=== PATIENT | female | born 1975 | race Caucasian/White ===

== ENCOUNTER 2021-07-08 18:28 | Emergency (ER) | payer SELFPAY ==
[~2021-07-08] VITALS: Ht 152.4 cm; Wt 52.7 kg
[2021-07-08 18:59] VITALS: BP 113/66
[2021-07-08] MEDS ORDERED: ACETAMINOPHEN EXTRA STRENGTH 500 MG TAB PO ONE (19:05)
[2021-07-08] MEDS ORDERED: ACETAMINOPHEN EXTRA STRENGTH 500 MG TAB ONE (19:06)
[2021-07-08] MEDS ORDERED: KETOROLAC 15 MG/ML VIAL IM ONE (20:20)
[2021-07-08 20:35] LABS: BASOPHILS % (AUTO) 0.4 % (0.0-2.0); EOSINOPHILS % (AUTO) 0.1 % (0.0-4.0); HEMATOCRIT 37.1 % (36-48); HEMOGLOBIN 12.3 g/dL (12.0-16.0); LYMPHOCYTES # (AUTO) 1.5 K/uL (2.5-16.5); LYMPHOCYTES % (AUTO) 21.5 % (20.5-51.1); MEAN CORPUSCULAR HEMOGLOBIN 28 pg (27-31); MEAN CORPUSCULAR HGB CONC 33 g/dL (33-37); MEAN CORPUSCULAR VOLUME 84.9 fL (80-94); MONOCYTES # (AUTO) 0.6 K/uL (0.8-1.0); MONOCYTES % (AUTO) 8.6 % (1.7-9.3); NEUTROPHILS # (AUTO) 4.9 K/uL (1.8-7.7); NEUTROPHILS % (AUTO) 69.4 % (42.2-75.2); PLATELET COUNT (AUTO) 181 K/uL (140-450); RED BLOOD CELL COUNT(AUTO) 4.37 MIL/uL (4.20-5.40); RED CELL DISTRIBUTION WIDTH 16.4 % (11.6-13.7)
[2021-07-08 20:52] VITALS: BP 100/62
[2021-07-08] MEDS ORDERED: HYDR25SU37 RC (20:52)
--- NOTE | 2021-07-08 20:52 | NUR ---
DR. LOVE NOTIFITED ON PT'S REPEAT VITALS
--- NOTE | 2021-07-08 21:13 | NUR ---
Patient discharged with v/s stable. Written and verbal after care instructions given and explained. Patient alert, oriented and verbalized understanding of instructions. Ambulatory with steady gait. All questions addressed prior to discharge. ID band removed. Patient advised to follow up with PMD. Rx of ANUCORT given. Patient educated on indication of medication including possible reaction and side effects. Opportunity to ask questions provided and answered.
== END 2021-07-08 21:13 | disposition home or self-care (01) ==
LOC: MED 18:28
DX: K64.9 Unspecified hemorrhoids (principal); Z79.899 Other long term (current) drug therapy
CPT/HCPCS: 36415; 85025; 99283